=== PATIENT | female | born 1985 | race Caucasian/White ===

== ENCOUNTER 2025-08-24 21:20 | Emergency (ER) | payer OTHER, SELFPAY ==
[2025-08-24 21:26] VITALS: BP 139/76
[2025-08-24] MEDS: GENOPTIC 0.3% EYE DROPS 1 DROP OPHTH (22:26)
[2025-08-24] MEDS: ADACEL 0.5 ML IM (22:27)
--- NOTE | 2025-08-24 22:29 | ED.GENMED ---
History of Present Illness
General
Chief Complaint: Eye Problems
Source: patient
Exam Limitations: none
Time Seen by Provider: 08/24/25 22:02
Nursing documentation reviewed up to this point in time: agreed with
History of Present Illness
History of Present Illness:
Note:
CHIEF COMPLAINT(S)
Pain in the right eye.
HISTORY OF PRESENT ILLNESS
The patient is a 39-year-old female who presents with pain in her right eye. The symptoms began earlier today when she was at a [employer] store with her son. She bent down, and was accidentally struck in the eye by the corner of a cardboard box
containing a toy sword. The patient describes the pain as intermittent. She denies wearing contact lenses or glasses and reports no other injuries. The last visual examination was over five years ago. There is no loss of vision reported apart from
the pain associated with the injury.
PHYSICAL EXAM
General: Alert, no acute distress.
Skin: Warm, dry.
Head: Normocephalic, atraumatic.
Neck: Supple, trachea midline.
Eye Ears, nose, mouth and throat: Oral mucosa moist.
Cardiovascular: Normal peripheral perfusion, No edema.
Respiratory: Respirations are non-labored.
Gastrointestinal : Abdomen nondistended.
Back: Normal range of motion, Normal alignment.
Musculoskeletal: Normal ROM, normal strength.
Neurological: Alert and oriented to person, place, time, and situation, No focal neurological deficit observed.
Psychiatric: Cooperative, appropriate mood & affect.
PLAN
The patient will be assessed for possible corneal abrasion or other eye injury, and appropriate treatment will be provided.
DIFFERENTIAL DIAGNOSIS
The Differential Diagnosis includes, in no particular order and is not limited to:
1. Corneal abrasion
2. Foreign body in the eye
3. Subconjunctival hemorrhage
4. Uveitis
5. Conjunctivitis
6. Orbital fracture
7. Retinal detachment
8. Acute glaucoma
9. Iritis
10. Vitreous hemorrhage
Disposition:
SUMMARY OF ENCOUNTER
The patient, a 39-year-old female, was seen in the emergency department for evaluation of right eye pain following an accidental injury sustained earlier in the day. A Tetrican and fluorescein exam revealed a corneal abrasion in the right eye,
horizontal in nature, extending from the 10 oclock to the 2 oclock position. There were no other associated injuries noted. The patient does not wear contact lenses.
PLAN
The patient has been prescribed gentamicin ophthalmic (Genoptic) for the corneal abrasion. Her tetanus immunization will be updated.
PATIENT EDUCATION AND COUNSELING
The patient was advised on the care of her eye injury and instructed to avoid rubbing the eye. She was informed about the potential symptoms to monitor for and instructed on the proper way to administer the prescribed medication.
FOLLOW-UP INSTRUCTIONS
The patient was advised to follow up with ophthalmology as needed, particularly if symptoms persist or worsen.
MEDICATION RECONCILIATION
1. Gentamicin ophthalmic (Genoptic) prescribed for corneal abrasion.
2. Tetanus immunization to be updated.
MEDICAL DECISION MAKING
- Complexity of Data Reviewed:
The differential diagnosis includes corneal abrasion, foreign body in the eye, subconjunctival hemorrhage, uveitis, conjunctivitis, orbital fracture, retinal detachment, acute glaucoma, iritis, and vitreous hemorrhage.
-Risk:
Consideration of Admission/Observation: Escalation of care including admission/observation was considered given the complexity and risk of the patients presenting complaint. However, ultimately, I feel the patient is safe for outpatient management
with close follow-up. Reasoning: Work-up reassuring, does not reveal any acute life/organ-threatening processes, patients symptoms well controlled upon reevaluation, re-examination is reassuring, vitals are stable, patient agreeable with discharge,
reliable for follow-up.
DIAGNOSIS
1. Corneal abrasion, right eye (ICD-10: S05.01XA)
Past History
Past History
ED Past Medical History: None
ED Past Surgical History: None
Social History
Personal:
Living: with family
Employment: Employed
Family History
Family History: Other (Noncontributory)
Phy Exam
Physical Exam
Physical Exam:
.
General Physical Exam
General Presentation: well appearing and mild distress
General age: appears stated age
General Skin: warm
General Habitus: normal
General Mental: alert
General Hydration: appears well hydrated
Eye Exam
Eye Exam: PERRL and EOMI
Cornea Exam: abrasion: Right
Course
Orders/Labs/Results
Orders:
Orders
08/24/25 22:22
Gentamicin [Genoptic 0.3% Eye Drops] See Dose Instructions OPHTH NOW STA
Tetanus/Diphth/Acelpertussis [Adacel] 0.5 ml IM .ONCE ONE
Vital Signs
Initial and Last Documented VS:
Initial Vital Signs
Temp Pulse Resp BP Pulse Ox
97.9 F 79 18 139/76 98
08/24/25 21:26 08/24/25 21:26 08/24/25 21:26 08/24/25 21:26 08/24/25 21:26
Last Documented Vital Signs
Temp Pulse Resp BP Pulse Ox
97.9 F 79 18 139/76 98
08/24/25 21:26 08/24/25 21:26 08/24/25 21:26 08/24/25 21:26 08/24/25 21:26
*Pulse Oximetry
SaO2: 98
Oxygen Mode of Delivery: Room air
Patient hypoxic: no
*Critical Care Note
Total Time (30-74mins, 75-104mins- exclusive of procedures): Not Applicable
ED Attending Note
-
Portions of this chart may have been created with voice recognition software.� Occasional wrong word or��sound alike� substitutions may have occurred due to the inherent limitations of voice recognition software.
Discharge Plan
Departure
Patient Disposition: Home (Routine Discharge)
Date of Disposition: 08/24/25
Time of Disposition: 22:29
Patient with high blood pressure during this ER visit?: Yes
Condition: Good
Discharge Problem:
Corneal abrasion
Instructions: Corneal Abrasion (DC), How to Use Eye Drops, BLOOD PRESSURE
Prescriptions:
No Action
azithromycin [Zithromax Z-Alfa] 250 MG tablet
250 mg PO DAILY
lorazepam 0.5 MG tablet
0.5 mg PO Q4HPRN PRN (Reason: anxiety)
escitalopram oxalate [Lexapro] 20 mg Tablet
20 mg PO DAILY
Referrals:
Piter Garcia MD [Family Provider, [facility][1]]
Activity Restrictions/Additional Instructions:
Please use the Genoptic eyedrops supplied. 1 drop in the right eye every 4 hours while awake for the next 4 days
Thank You for choosing [facility].
It was a pleasure meeting you and taking part in your care. We hope for your continued healing and wellness.
Please read discharge instructions in their entirety. However, they are for general education and may not describe your exact diagnosis at discharge. Information on your ER visit and medical conditions were discussed with you along with appropriate
follow up information...
If indicated, please take your medications as instructed and indicated on discharge paperwork.
Please schedule a follow up appointment as directed. Call to schedule an appointment
Please return to the emergency department with ANY change in, persisting, or worsening of symptoms. If any of your symptoms do not improve, or persist, or become more severe within 6-12 hours, please return to the emergency department for further
care.
Please return to the emergency department if you develop a headache, neck pain/stiffness, fever greater than 100.4F, chest pain, shortness of breath, persistent nausea, vomiting, slurred speech, difficulty walking, numbness/tingling, weakness, signs
of infection or any other symptoms that are worrisome to you.
If you have any questions or concerns please do not hesitate to call the Hospital at .
Interventions
Interventions:
*Risk Screen - Suicide Last Done: 08/24/25 21:30
*General Assessment Last Done: 08/24/25 22:13
*Neglect/Abuse Screening Last Done: 08/24/25 21:30
*ED- Fall Risk Assessment Last Done: 08/24/25 22:13
*ED COVID-19 Vaccine History Last Done: 08/24/25 21:30
*ED Influenza Vaccine History Last Done: 08/24/25 21:30
Discharge Date and Time
Print Language: [id number]
[2025-08-24 22:33] VITALS: BP 140/84
== END 2025-08-24 22:37 | disposition home or self-care (01) ==
LOC: EMR 21:20
PROVIDERS: EMERGENCY PHYSICIAN Student in an Organized Health Care Education/Training Program; FAMILY PHYSICIAN Family Medicine
DX: S05.01XA Injury of conjunctiva and corneal abrasion without foreign body, right eye, initial encounter (principal); R03.0 Elevated blood-pressure reading, without diagnosis of hypertension; Z23 Encounter for immunization; W22.09XA Striking against other stationary object, initial encounter; Y92.512 Supermarket, store or market as the place of occurrence of the external cause
CPT/HCPCS: 99283; 90471; 90715